=== PATIENT | female | born 2000 | race Caucasian/White ===

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

== ENCOUNTER 2021-01-12 20:30 | Emergency (ER) | payer BC, OTHER ==
[~2021-01-12 20:30] MED LIST: ATROVENT HFA12.9 GM INH; DELSYM30 MG/5 ML PO; FLONASE 0.05% N16 GM; IBUPROFEN600 MG PO
== END 2021-01-12 23:20 | disposition home or self-care (01) ==
LOC: ER1 20:30
DX: S90.31XA Contusion of right foot, initial encounter (principal); W55.12XA Struck by horse, initial encounter
CPT/HCPCS: 73630; 99283

== ENCOUNTER → 2021-02-14 | Outpatient (CLI) | payer BC | LOC: US 14:23 | DX: R10.32 Left lower quadrant pain (principal) | CPT/HCPCS: 76856 ==

== ENCOUNTER → 2021-12-08 | Outpatient (CLI) | payer BC | LOC: CT 10:44 | DX: R10.813 Right lower quadrant abdominal tenderness (principal); R11.2 Nausea with vomiting, unspecified; D72.829 Elevated white blood cell count, unspecified | CPT/HCPCS: Q9967 ==